=== PATIENT | male | born 1970 | race American Indian/Alaskan Native ===

== ENCOUNTER 2016-11-20 16:10 | Emergency (ER) | payer MEDICAID ==
[2016-11-20 16:10] VITALS: BMI 23.8
[2016-11-20 16:20] VITALS: BP 152/90; PULSE 104; RESP 20; TEMP 98.3; O2SAT 98
--- NOTE | 2016-11-20 18:26 | C.PDOC ---
History Of Present Illness The patient, a 46 y/o male, presents to the ED for evaluation of right thigh pain which began one day ago (as per triage note). Patient presents with copy of an Ultrasound which was performed in a hospital in [place] on 11/14/16. The US results show that patient has a partial DVT in his right thigh. Patient states he had been taking Coumadin, but reports he was told that his prescription will be switched to something else. Patient received the Rx, but states his insurance does not cover the cost of the new medication. It is unclear why patient did not address this issue with the prescriber. Instead, patient has discontinued anticoagulant use for the past week. Patient now presents to the ED requesting dilaudid for the pain. Patient denies fever, chils , chest pain, cough, and shortness of breath. Patient states his PMD is Dr. Ann; patient has not seen his PMD in several months. Time Seen by Provider: 11/20/16 16:34 Chief Complaint (Nursing): Groin Pain History Per: Patient History/Exam Limitations: no limitations Onset/Duration Of Symptoms: Hrs Current Symptoms Are (Timing): Still Present Additional History Per: Patient Past Medical History Reviewed: Historical Data, Nursing Documentation, Vital Signs Vital Signs: Last Vital Signs Temp 98.3 F 11/20/16 16:16 Pulse 104 H 11/20/16 16:16 Resp 20 11/20/16 16:16 BP 152/90 H 11/20/16 16:16 Pulse Ox 98 11/20/16 22:31 - Medical History PMH: Asthma, COPD, Deep Vein Thrombosis, HTN, Mitral Valve Prolapse, Pulmonary Embolism Comment Only: Anemia (protein factor 5, protein c and s) Surgical History: No Surg Hx - [facility] Procedures INJECT/INFUSE NEC (10/01/13) Family History: States: Unknown Family Hx - Social History Hx Tobacco Use: No Hx Alcohol Use: No Hx Substance Use: No Review Of Systems Constitutional: Negative for: Fever, Chills Cardiovascular: Negative for: Chest Pain Respiratory: Negative for: Cough, Shortness of Breath Musculoskeletal: Positive for: Leg Pain (right thigh pain ) Physical Exam - Physical Exam Appears: Non-toxic, No Acute Distress Skin: Normal Color, Warm, Dry Head: Atraumatic, Normacephalic Eye(s): bilateral: Normal Inspection, EOMI Oral Mucosa: Moist Neck: Supple Chest: Symmetrical, No Deformity, No Tenderness Cardiovascular: Rhythm Regular, No Murmur Respiratory: Normal Breath Sounds, No Rales, No Rhonchi, No Wheezing Gastrointestinal/Abdominal: Soft, No Tenderness, No Guarding, No Rebound Back: Normal Inspection, No Vertebral Tenderness, No Paraspinal Tenderness Extremity: Normal ROM, Capillary Refill (less than 2 seconds ), Swelling (2+ to bilateral lower extremities ) Pulses: Left Dorsalis Pedis: Normal, Right Dorsalis Pedis: Normal Neurological/Psych: Oriented x3, Normal Speech, Normal Cognition Gait: Steady ED Course And Treatment O2 Sat by Pulse Oximetry: 98 (on RA) Pulse Ox Interpretation: Normal Medical Decision Making Medical Decision Making: Review of old records shows that patient has presented with similar complaints multiple times in the past. Patient has a record of requesting narcotic pain medication and eloping when the medication is not promptly delivered. Patient eloped from the ED before I could enter orders. Disposition - Disposition Disposition: ELOPEMENT - ER ONLY Disposition Time: 18:00 Condition: UNKNOWN - Clinical Impression Clinical Impression: Leg pain, Drug-seeking behavior - Scribe Statement The provider has reviewed the documentation as recorded by the Scribe (Neyda Salazar) Provider Attestation: All medical record entries made by the Scribe were at my direction and personally dictated by me. I have reviewed the chart and agree that the record accurately reflects my personal performance of the history, physical exam, medical decision making, and the department course for this patient. I have also personally directed, reviewed, and agree with the discharge instructions and disposition.
== END 2016-11-20 17:31 | disposition left against medical advice (07) ==
LOC: C.ER 16:10
DX: M79.651 Pain in right thigh (principal); Z76.5 Malingerer [conscious simulation]